=== PATIENT | female | born 1990 | race Hispanic/Latino ===

== ENCOUNTER 2017-01-14 20:29 | Emergency (ER) | payer OTHER, SELFPAY ==
[2017-01-14] MEDS ORDERED: Ondansetron ODT 4 MG TAB ONE (20:54)
[2017-01-14 21:56] LABS: Blood, Urine Negative (Negative); Glucose, Urine (Dipstick) Negative (Negative); Leukocyte Negative (Negative); Nitrite Negative (Negative); Protein, Urine (Dipstick) 100 mg/dL (Neg-Trace); Urobilinogen 0.2 mg/dL (0.2-1.0)
[2017-01-14 21:57] LABS: #Lymphocytes 0.7 thou/uL (1.20-3.40); #Monocytes 0.5 thou/uL (0.11-0.59); #Neutrophils 7.4 thou/uL (1.40-6.50); %Basophils 0.3 % (0.0-1.0); %Eosinophils 0.1 % (0.0-10.0); %Lymphocytes 7.6 % (21.0-51.0); %Monocytes 6.2 % (0.0-10.0); %Neutrophils 85.8 % (42.0-75.0); Clarity Cloudy (Clear); Hemoglobin 15.1 g/dL (12.0-16.0); Mean Corpuscular HGB CONC 32.8 g/dL (32.0-36.0); Mean Corpuscular Hemoglobin 28.8 pg (27.0-31.0); Mean Corpuscular Volume 87.9 fl (81.0-99.0); Mean Platelet Volume 8.8 fL (7.4-10.4); Platelet Count 213 thou/uL (130-400); Red Blood Cell (RBC) Count 5.24 mill/uL (4.20-5.40); White Blood Cell (WBC) Count 8.7 thou/uL (4.8-10.8)
[2017-01-14 21:58] LABS: Bilirubin Negative (Negative); Icto Negative (Negative); Specific Gravity, Urine 1.031 (1.002-1.036)
[2017-01-14 21:59] LABS: Pregnancy Test - Urine (BHCG) Negative (NEGATIVE); Pregu Control Background? CLEAR/WHITE (CLR/WHITE); Pregu Control Bar Appear? YES (CONTROL BAR); Specific Gravity 1.031 (1.002-1.036)
[2017-01-14 22:02] LABS: Bacteria/HPF Rare-Few HPF (None Seen); RBC/HPF None Seen HPF (0-3)
[2017-01-14 22:11] LABS: ALT (SGPT) 75 U/L (8-55); AST (SGOT) 43 U/L (5-34); Albumin 3.9 g/dL (3.5-5.0); Alkaline Phosphatase 76 U/L (40-150); Anion Gap 14 mmol/L (10-20); BUN (Urea Nitrogen) 11 mg/dL (7.0-18.7); Bilirubin, Total 1.1 mg/dL (0.2-1.2); Calc. Creatinine Clearance 0 mL/min (70-130); Calcium 9.3 mg/dL (7.8-10.44); Carbon Dioxide 23 mmol/L (22-29); Chloride 104 mmol/L (98-107); Estimated GFR-MDRD Greater than 90; Globulin 3.9 g/dL (2.4-3.5); Glucose 101 mg/dL (70-105); Potassium 3.5 mmol/L (3.5-5.1); Protein, Total 7.8 g/dL (6.0-8.3); Sodium 137 mmol/L (136-145)
== END 2017-01-14 23:15 | disposition home or self-care (01) ==
LOC: NAV ERS 20:29
DX: K52.9 Noninfective gastroenteritis and colitis, unspecified (principal)
CPT/HCPCS: 80053; 81003; 81015; 81025; 85025; 96360; Q0162

== ENCOUNTER 2018-08-10 08:45 | Emergency (ER) | payer OTHER, SELFPAY ==
[2018-08-10] MEDS ORDERED: Ketorolac Tromethamine 60 MG/2 ML VIAL ONE (09:07)
[2018-08-10] MEDS ORDERED: Acetaminophen 500 MG TAB ONE (09:07)
== END 2018-08-10 09:17 | disposition home or self-care (01) ==
LOC: NAV ERS 08:45
DX: S40.012A Contusion of left shoulder, initial encounter (principal); W01.198A Fall on same level from slipping, tripping and stumbling with subsequent striking against other object, initial encounter
CPT/HCPCS: 96372; J1885